=== PATIENT | male | born 1985 | race Two or more races ===

== ENCOUNTER 2019-10-14 21:21 | Emergency (ER) | payer MEDICAID ==
[~2019-10-14] VITALS: Ht 180.3 cm; Wt 99.8 kg
[2019-10-14 21:46] VITALS: BP 138/74
== END 2019-10-15 00:42 | disposition home or self-care (01) ==
LOC: EDBD 21:21 → ER 21:26
DX: S22.080A Wedge compression fracture of T11-T12 vertebra, initial encounter for closed fracture (principal); Z88.0 Allergy status to penicillin; V86.59XA Driver of other special all-terrain or other off-road motor vehicle injured in nontraffic accident, initial encounter; Y93.89 Activity, other specified; Y92.89 Other specified places as the place of occurrence of the external cause; Y99.8 Other external cause status
CPT/HCPCS: 72100; 72131